=== PATIENT | male | born 1955 | race American Indian/Alaskan Native ===

== ENCOUNTER 2018-05-03 00:35 | Emergency (ER) | payer MEDICAID ==
[2018-05-03 00:42] VITALS: BP 148/91
--- NOTE | 2018-05-03 02:45 | Emergency Department Report ---
ED Rash HPI - HPI Chief Complaint: Animal Bite Stated Complaint: LEG & FOOT PAIN Time Seen by Provider: 05/03/18 02:04 Duration: 1 Day Location: Lower Extremities (left inner ankle) Suspected Cause: Insect Rash Symptoms: No Itching, No Facial Swelling, No Tongue/Oral Swelling, No Breathing Difficulties, No Choking Sensation, No Wheezing/Dyspnea, No Peeling, No Blistering, No Fever, No Lightheaded, No Malaise, No Myalgias Severity: moderate Other History: This is a 63-year-old male here report that he was working in his yard yesterday and he was bitten by something and he wants to know what he was bitten by. He states that he has red rash to his inner ankle on the left side. Denies any respiratory symptoms. Denies any chest pain or shortness of breath . Denies any fever or chills. Denies any swelling to the foot or ankle. Pain is 6 out of 10 only with movement. No pain or resting. He said he is really here to find out what bit him. Tetanus shot is less than 5 years per patient. He did not take any medication prior to coming to the hospital. ED Review of Systems ROS: Stated complaint: LEG & FOOT PAIN Other details as noted in HPI Constitutional: denies: chills, fever ENT: denies: throat pain, congestion Respiratory: denies: cough, orthopnea, shortness of breath, SOB with exertion, SOB at rest, stridor, wheezing Cardiovascular: denies: chest pain, palpitations, edema, syncope Endocrine: no symptoms reported Gastrointestinal: denies: nausea, vomiting Musculoskeletal: arthralgia. denies: back pain, joint swelling Skin: rash. denies: lesions Neurological: denies: headache, weakness, paresthesias Psychiatric: denies: anxiety, depression Hematological/Lymphatic: denies: easy bleeding, easy bruising ED Past Medical Hx - Past Medical History Previous Medical History?: Yes Hx Hypertension: Yes Additional medical history: Hyperlipidemia, High Cholesterol, Neck and back pain - Surgical History Past Surgical History?: Yes Additional Surgical History: Neck Surgery - Social History Smoking Status: Never Smoker Substance Use Type: None - Medications Home Medications: Home Medications Medication Instructions Recorded Confirmed Last Taken Type HYDROcodone/APAP 5-325 [[place] 1 each PO Q6HR PRN #16 tablet 05/27/16 Unknown Rx 5/325] Cephalexin [Keflex] 500 mg PO Q12HR 7 Days #14 cap 05/03/18 Unknown Rx Rash Exam - Exam General: Vital signs noted. No distress. Alert and acting appropriately. This is a 63-year-old male well-nourished well-developed nontoxic in appearance. HEENT: No Periorbital Edema, No Conjuctival Injection, No Chemosis, No Perioral Edema, No Tongue Edema, No Uvular Edema, No Compromised Airway, No Drooling Lungs: Yes Good Air Exchange (CTAB), No Wheezes, No Ronchi, No Stridor, No Cough , No Labored Respirations, No Retractions, No Use of Accessory Muscles, No Other Abnormal Lung Sounds Heart: Yes Regular (S1, S2 regular rate and rhythm), No Murmur Front/Back of Body, Lg (Color): 1 - Patient with less than 2 mm erythema area to left inner ankle. No swelling in, no induration swelling to the foot. No drainage. Erythema flat. Area cleansed with surgical scrub and Band-Aid dressing placed the site. Tetanus vaccine is up-to-date Skin: Yes Erythema (small erythematous area less than 2 mm to left inner ankle. Small point opening to Center without any drainage. No swelling), No Urticarial Rash, No Maculopapular Rash, No Morbilliform rash, No Bulla(e), No Excoriations, No Weeping, No Tenderness, No Edema, No Encrustations, No Other Other: Positive: Abdomen Normal, Neurologic Normal, Musculoskeletal Normal ED Course Vital Signs 05/03/18 05/03/18 00:35 01:55 Temperature 98.0 F 98.0 F Pulse Rate 97 H 97 H Respiratory 20 20 Rate Blood Pressure 148/91 148/91 O2 Sat by Pulse 98 97 Oximetry - Reevaluation(s) Reevaluation #1: 05/03/18 02:55 Affected area to left inner ankle cleansed with surgical scrub and dried and Band-Aid dressing placed the site. ED Medical Decision Making - Medical Decision Making This is a 63-year-old male presents to the hospital here still what bit him after working in the yard yesterday. He said he has a small red spot that is painful but then he said it is not painful anymore. He presented to the emergency room to be evaluated to find out if she was bitten by a snake or spider. Denies any respiratory symptoms. Patient was examined by myself and found to have less than 2 mm erythema area to left inner ankle without any swelling. Small opening to Center. No surrounding edema and foot exam is normal. Patient vital signs are stable and he is afebrile. I discussed the patient that he has what seemed to be insect bite but I'm not sure what bit him it has mild erythema area and I'll put him on antibiotic to prevent it from getting worse. He is not having any pain at present. Lungs are clear and mouth exams normal. Neck is normal.. A/P 1: Insect bite, left ankle-tetanus vaccine is up-to-date. 2: Mild cellulitis. Left ankle-area scrubbed with surgical scrub and bandage dressing applied to site. We'll send patient home on antibiotic. Patient discharged home with prescription for Keflex. Educated on diagnosis, medication and needs to follow-up with his primary care physician which he said he does have one. I also educated him on signs of worsening infection and when to return to the emergency room and he voiced understanding. Pt discharged home from emergency room in stable condition. He is nontoxic and his vital signs are stable. He is in no distress nor is he in any pain at present. He knows he is to follow-up with his primary care physician in 2-3 days and also aware that he can return to the emergency room if area becomes worse redness, swelling or pain. - Differential Diagnosis cellulitis, insect bite Critical care attestation.: If time is entered above; I have spent that time in minutes in the direct care of this critically ill patient, excluding procedure time. ED Disposition Clinical Impression: Cellulitis of left ankle Insect bite of left ankle Qualifiers: Encounter type: initial encounter Qualified Code(s): S90.562A - Insect bite ( nonvenomous), left ankle, initial encounter; W57.XXXA - Bitten or stung by nonvenomous insect and other nonvenomous arthropods, initial encounter Disposition: DC-01 TO HOME OR SELFCARE Is pt being admited?: No Does the pt Need Aspirin: No Condition: Stable Instructions: Insect Bite or Sting (ED), Cellulitis (ED) Additional Instructions: Take antibiotic as prescribed Follow-up with your primary care physician in 2 days Keep affected area clean and dry. Please return to the emergency room if area becomes increasing redness, swelling , pain, drainage, numbness or tingling Prescriptions: Cephalexin [Keflex] 500 mg PO Q12HR 7 Days #14 cap Referrals: PRIMARY CARE, [Primary Care Provider] - 2-3 Days Forms: Work/School Release Form(ED)
[2018-05-03] MEDS ORDERED: TRIPLE ANTIBIOTIC TP ONE (02:51)
== END 2018-05-03 03:05 | disposition home or self-care (01) ==
LOC: ED 00:35
DX: S90.562A Insect bite (nonvenomous), left ankle, initial encounter (principal); L03.116 Cellulitis of left lower limb; I10 Essential (primary) hypertension; E78.00 Pure hypercholesterolemia, unspecified; E78.5 Hyperlipidemia, unspecified; W57.XXXA Bitten or stung by nonvenomous insect and other nonvenomous arthropods, initial encounter; Y93.89 Activity, other specified; Y99.8 Other external cause status; Y92.89 Other specified places as the place of occurrence of the external cause
CPT/HCPCS: 99282